=== PATIENT | male | born 1975 | race Caucasian/White ===

== ENCOUNTER 2020-08-27 15:51 | Outpatient (REF) | payer MEDICAID, SELFPAY | END 2020-08-27 15:52 | disposition home or self-care (01) | LOC: HO.SCI 15:51 | PROVIDERS: PCP Family Medicine; Visit Provider Family Medicine | DX: Z13.89 Encounter for screening for other disorder (principal) ==

== ENCOUNTER → 2020-09-21 09:21 | Outpatient (REF) | payer MEDICAID, SELFPAY ==
--- NOTE | 2020-09-21 09:15 | CA_ITS ---
Acquisition Time: 2020-09-21 10:49:54 Total Exercise Time: 00:09:37 Test Indications: Dyspnea Medications: Protocol: KORY Max HR: 179 BPM 101% of Pred: 177 BPM Max BP: 166/072 mmHG Max Work Load: 11.0 METS Exercise stress test using Kory protocol, total of 9 min 37 sec. METS 11.0, and TAPHR up to 101%. Pt tolerated well, denies any anginal sx. EKG without any arrhythmias, no ischemic changes seen during exercise or in recovery. Normotensve response to exercise. Test reviewed with Dr. Johnson. Referred By: Noé Perdomo Overread By:
== END ==
LOC: HO.CARD 09:21
PROVIDERS: PCP Internal Medicine; Visit Provider Internal Medicine
DX: R07.9 Chest pain, unspecified (principal)
CPT/HCPCS: 93016; 93017; 93018

== ENCOUNTER 2024-07-29 15:18 | Outpatient (REF) | payer MEDICAID, SELFPAY ==
[2024-07-30 07:19] LABS: HPV 16,18/45 See PAP report
[2024-07-30 08:42] LABS: Syphilis Screen Nonreactive (Nonreactive)
[2024-07-30 08:51] LABS: HIV AB/AG Nonreactive (Nonreactive); HIV Num 1 0.05 S/CO (0.00-0.99); ~Hepatitis C Antibody Nonreactive (Nonreactive)
[2024-07-30 10:49] LABS: HPV 16,18/45 See PAP report
[2024-07-30 14:06] LABS: CT PCR NOT DETECTED (Not Detect.); NG PCR NOT DETECTED (Not Detect.)
[2024-08-08 23:49] LABS: HPV MRNA E6/E7 Rectal NOT DETECTED
== END 2024-07-29 15:19 | disposition home or self-care (01) ==
LOC: HO.CHCLDS 15:18
PROVIDERS: Visit Provider Internal Medicine
DX: A63.0 Anogenital (venereal) warts (principal)
CPT/HCPCS: 36415; 86780; 86803; 87389; 87491; 87591; 87624; 87626; 88112; 88175

== ENCOUNTER 2024-11-22 08:34 | Outpatient (REF) | payer MEDICAID, SELFPAY ==
--- OUTSIDE RECORDS SUMMARY | 2024-11-22 08:58 | XMS_ITS | Encounter Summary ---
Author Organization [employer] Address [address] [facility] 7t [place] [address] Care Team Providers Care Service Attendant Name Role Phone Noé Champagne MD Primary Care Prov ider Encounter Details Date Type Department Care Team (Latest Contact Info) Description 11/21/2024 Travel Social History Tobacco Use Types Packs/Day Years Used Date Smoking Tobacco: Former Cigarettes Cigars Smokeless Tobacco: Never Alcohol Use Standard Drinks/Week Comments Yes 0 (1 standard drink = 0.6 oz pur e alcohol) Sex and Gender Information Value Date Recorded Sex Assigned at Male 05/23/2022 10:37 AM EDT Legal Sex Male 10:37 AM EDT Gender Identity Choose not to disclose 10:37 AM EDT Sexual Orientation Choose not to disclose 2021 10:37 AM EDT documented as of this encounter Plan of Treatment Upcoming Encounters Date Type Department Care Team (Late st Contact Info) Description 11/22/2024 9:00 AM EDT Office Visit [facility] AD[facility] [address] [place] [address] Kj Dawkins [address] [place] [address] Arrived documented as of this encounter Visit Diagnoses Not on filedocumented in this encounter Care Teams Service Attendant Relationship Specialty Start Date End Date Noé Champagne MD [address] [place] [address] PCP - General Internal Medicine 08/03/20 documented as of this encounter
--- OUTSIDE RECORDS SUMMARY | 2024-11-22 08:58 | XMS_ITS | Encounter Summary ---
Author Organization [facility] [employer] Address [address] [facility] 7t [place] [address] Care Team Providers Care Grain Picker Name Role Phone Noé Champagne MD Primary Care Prov ider Reason for Visit * Reason Comments Med Refill Encounter Details Date Type Department Care Team (Late Contact Info) Description 06/25/2024 Refill [facility] MEDIC[facility] [address] [place] [address] Artemio Cho MD [address] [place], [place] [phone] Primary hypertension Social History Tobacco Use Types Packs/Day Years [...] Description 11/22/2024 9:00 AM EDT Office Visit [facility] ADULT D[facility]AL [address] [place] [address] Kj Dawkins [address] [place] [address] Arrived documented as of this encounter Visit Diagnoses Diagnosis Primary hypertension Unspecified essential hypertension documented in this encounter Care Teams Grain Picker Relationship Specialty Start Date End Date Noé Champagne MD [address] [place] [address] PCP - General Internal Medicine 08/03/20 documented as of this encounter
--- OUTSIDE RECORDS SUMMARY | 2024-11-22 08:58 | XMS_ITS | Encounter Summary ---
Author Organization [employer] Address [address] [facility] 7 [place] [address] Care Team Providers Care Crossbar Frame Wirer Name Role Phone Noé Champagne MD Primary Care Prov ider Reason for Visit * Reason Comments [place] Encounter Details Date Type Department Care Team ([facility] Contact Info) Description 11/22/2024 9:00 AM EDT Office Visit [facility] ADULT DENTAL [address] [place], [place] [phone] Kj Dawkins [address] [place], [place] [phone] Arrived Social History Tobacco Use Types Packs/Day Years [...] AM EDT documented as of this encounter Last Filed Vital Signs Vital Sign Reading Time Taken Comments Blood Pressure 124/82 11/22/2024 8:55 AM EDT Pulse - - Temperature - - Respiratory Rate - - Oxygen Saturation - - Inhaled Oxygen Concentration - - Weight - - Height - - Body Mass Index - - documented in this encounter Plan of Treatment Not on file documented as of this encounter Visit Diagnoses Not on filedocumented in this encounter Care Teams Crossbar Frame Wirer Relationship Specialty Start Date End Date Noé Champagne MD [address] [place] [address] PCP - General Internal Medicine 08/03/20 documented as of this encounter
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
--- OUTSIDE RECORDS SUMMARY | 2024-11-22 08:58 | XMS_ITS | Clinical Summary ---
Author Organization [employer] Address [address] [facility] 7t [place] [address] Care Team Providers Care Service Administrator Name Role Phone Noé Champagne MD Primary Care Prov ider Allergies No known active allergies Medications acetaminophen (Tylenol) 325 MG tablet TAKE ONE TABLET BY MOUTH EVERY 8 HOURS NEEDED FOR PAIN 30 tablet 03/09/20 23 Active ibuprofen 600 MG tablet Take 1 tablet (600 mg) by mouth 3 times daily. 90 tablet 11/22/19 25 025 Active traZODone (Desyrel) 50 MG tablet Take 1 tablet (50 mg) by mouth at bedtime. 30 tablet 11/22/19 25 025 Active losartan (Cozaar) 50 MG tabletIndication s:Primary hypertension Take 1 tablet (50 mg) by mouth Once per day. 90 tablet 3 11/22/19 25 Active losartan (Cozaar) 50 MG tabletIndication s:Primary hypertension Take 1 tablet (50 mg) by mouth Once per day. 90 tablet 3 07/09/20 24 025 Discontinued(Re order (will not trigger notification to Pharmacy)) Active Problems Problem Noted Date Diagnosed Date Primary insomnia 11/21/2024 Assessment & Plan (11/21/2024 2:11 PM EDT): Will start on trazodone, risk vs benefits discussed, lifestyle modifications reinforced Primary hypertension 07/09/2024 Assessment & Plan (11/21/2024 2:10 PM EDT): Controlled, keep low sodium diet and exercise as tolerated, keep bp log, target <140/90 Assessment & Plan (07/09/2024 2:25 PM EST): Controlled, continue low sodium diet and exercise as tolerated, keep bp log, new labs ordered for guidance, target <140/90, follow up in 4 months Encounters Date Type Department Care Team Description 11/22/2024 9:00 AM EDT Office Visit [facility] ADULT DENTAL [address] [place] [address] Enedina Dawkinsricio Arrived 11/21/2024 1:45 PM EDT Telemedicine [facility] PEDS [address] [place] [address] Noé Champagne MD Primary hypertension (Primary Dx); Primary insomnia 11/21/2024 Travel 10/31/2024 8:00 AM EDT Office Visit [facility] ADULT DENTAL [address] [place] [address] MarizaEnedina burgessricio 10/17/2024 9:00 AM EDT Office Visit [facility] ADULT DENTAL [address] [place] [address] MarizaEnedina burgessricio 09/26/2024 8:00 AM EST Office Visit [facility] ADULT DENTAL [address] [place] [address] Kj Dawkins from Last 3 Months Social History Tobacco Use Types Packs/Day Years Used Date Smoking Tobacco: Former Cigarettes Cigars Smokeless Tobacco: Never Tobacco Cessation:Counseling Given: Not Answered Alcohol Use Standard Drinks/Week Comments Yes 0 (1 standard drink = 0.6 oz pur e alcohol) Sex and Gender Information Value Date Recorded Sex Assigned at Male 05/23/2022 10:37 AM EDT Legal Sex Male 10:37 AM EDT Gender Identity Choose not to disclose 10:37 AM EDT Sexual Orientation Choose not to disclose 2021 10:37 AM EDT Last Filed Vital Signs Vital Sign Reading Time Taken Comments Blood Pressure 124/82 11/22/2024 8:55 AM EDT Pulse 106 07/29/2024 2:33 PM EST Temperature 36.7 ??C (98 ??F) 07/29/2024 2:33 PM EST Respiratory Rate 20 07/29/2024 2:33 PM EST Oxygen Saturation 95% 07/29/2024 2:33 PM EST Inhaled Oxygen Concentration - - Weight 119 kg (263 lb) 07/29/2024 2:33 PM EST Height 170 cm (5' 6.93 ) 07/29/2024 2:33 PM EST Body Mass Index 41.28 07/29/2024 2:33 PM EST Plan of Treatment Upcoming Encounters Date Type Department Care Team (Late st Contact Info) Description 11/22/2024 9:00 AM EDT Office Visit [facility] ADULT DENTAL [address] [place] [address] Mariza Kj [address] [place] [address] Arrived Health Maintenance Due Date Last Done Comments CT Colonography 1977 Colonoscopy 1977 Depression Screening 1977 FIT 1977 FOBT 1977 SDOH Screening 1977 Sigmoidoscopy 1977 Alcohol/Substance Use Screening 1989 Family Planning (PISQ) 1992 DTaP/Tdap/Td Vaccines (1 - Tdap) 1996 Hepatitis B Vaccines (1 of 3 - 19+ 3-dose series) 1996 COVID-19 Vaccine (2023- season) 2024 08/09/2021, 01/14/2021, 12/24/2020 Influenza Vaccine (#1) 2024 Dental Prophylaxis 04/13/2024 10/11/2023 Dental Oral Exam 11/15/2024 05/16/2024, , 01/26/2023 Dental X-Ray: Bitewings 05/17/2025 05/16/20, 10/11/2023, 01/26/2023, Additional history exists Tobacco Screening 10/31/2025 10/31/2024 Dental X-Ray: Full Mouth 05/17/2027 05/16/2024, 12/2022 Lipid Panel 05/27/2027 05/27/2022, 040 10/2021, 08/04/2020 Colorectal Cancer Screening 08/30/2027 FIT DNA/Cologuard 08/30/2027 08/30/2024 Zoster Vaccines (1 of 2) 2027 RSV Patients and Patients Aged 60 years or older (1 - 1-dose 75+ series) 2052 HIV Screening Completed 07/29/2024, 08/04/2020 Hepatitis C Screening Completed 07/29/2024 HIB Vaccines Aged Out No longer eligi ble based on patient's age to complete this topic HPV Vaccines Aged Out No longer eligi ble based on patient's age to complete this topic Hepatitis A Vaccines Aged Out No long er eligible based on patient's age to complete this topic IPV Vaccines Aged Out No longer eligi ble based on patient's age to complete this topic Meningococcal Vaccine Aged Out No herbert pam eligible based on patient's age to complete this topic Pneumococcal Vaccine: Pediatrics (0 to 5 Years) and At-Risk Patients (6 to 49) Years) Aged Out No longer eligible based on patient's age to complete this topic RSV under 20 months Aged Out No longe r eligible based on patient's age to complete this topic Rotavirus Vaccines Aged Out No longer eligible based on patient's age to complete this topic Procedures Procedure Name Priority Date/Time Associated Diagnosis Comments NO CHARGE PROCEDURE Routine 10/31/2024 8 :00 AM EDT NO CHARGE PROCEDURE Routine 10/17/2024 9 :00 AM EDT 29 CROWN PREP Routine 09/26/2024 8:00 AM EST LAB COLOGUARD?? COLON CANCER SCREEN Routine 08/30/2024 10:11 AM EST Screening for colon cancer HEPATITIS C AB W/REFL TO HCV RNA, QN, PCR Routine 07/29/2024 3:28 PM EST Warts, genital HIV 1/2 ANTIGEN/ANTIBODY, FOURTH GENERATION W/RFL Routine 07/29/2024 3:28 PM EST Warts, genital INTRAORAL - COMPLETE SERIES OF RADIOGRAPHIC IMAGES Routine 05/16/2024 9:30 AM EDT PERIODIC ORAL EVALUATION - ESTABLISHED PATIENT Routine 05/16/2024 9:30 AM EDT PROPHYLAXIS - ADULT Routine 10/11/2023 1 1:00 AM EDT LIPID PANEL, STANDARD Routine 05/27/2022 8:40 AM EDT from Last 3 Months or Most Recently Relevant to Health Maintenance Results * Cologuard?? colon cancer screening (08/30/2024 10:11 AM EST) Cologuard Result Negative Negative 09/07/19 4:31 AM EST [employer] (IA #:[id number]) Comment: NEGATIVE TEST RESULT. A negative Cologuard result indicates a low likelihood that a colorectal cancer (CRC) or advanced adenoma (adenomatous polyps with more advanced pre-malignant features) ??is present. The chance that a person with a negative Cologuard test has a colorectal cancer is less than 1 in 1500 (negative predictive value >99.9%) or has an ??advanced adenoma is less than ??5.3% (negative predictive value 94.7%). These data are based on a prospective cross-sectional study of 10,000 individuals at average risk for colorectal cancer who were screened with both Cologuard and colonoscopy. (David Fuchs et al, N Engl J Med 2014;370(14):1286- 1297) The normal value (reference range) for this assay is negative. COLOGUARD RE-SCREENING RECOMMENDATION: Periodic colorectal cancer screening is an important part of preventive healthcare for asymptomatic individuals at average risk for colorectal cancer. ??Following a negative Cologuard result, the [place] Cancer Society and U.S. Multi-Society Task Force screening guidelines recommend a Cologuard re-screening interval of 3 years. References: [place] Cancer Society Guideline for Colorectal Cancer Screening: https://www.cancer.org/cancer/mmwim-wfllfk-nwwtdb/ctjozycgx-xiimvlthe-itotycv/ac s-rec ommendations.html.; Cornell WINTER, Destini SHEEHAN, Claudy HugginsK, Colorectal Cancer Screening: Recommendations for Physicians and Patients from the U.S. Multi-Society Task Force on Colorectal Cancer Screening , Am J Gastroenterology 2017; 112:2147-2697. TEST DESCRIPTION: Composite algorithmic analysis of stool DNA-biomarkers with hemoglobin immunoassay. ?? Quantitative values of individual biomarkers are not reportable and are not associated with individual biomarker result reference ranges. Cologuard is intended for colorectal cancer screening of adults of either sex, 45 years or older, who are at average-risk for colorectal cancer (CRC). Cologuard has been approved for use by the U.S. FDA. The performance of Cologuard was established in a cross sectional study of average-risk adults aged 50-84. Cologuard performance in patients ages 45 to 49 years was estimated by sub-group analysis of near-age groups. Colonoscopies performed for a positive result may find as the most clinically significant lesion: colorectal cancer [4.0%], advanced adenoma (including sessile serrated polyps greater than or equal to 1cm diameter) [20%] or non- advanced adenoma [31%]; or no colorectal neoplasia [45%]. These estimates are derived from a prospective cross-sectional screening study of 10,000 individuals at average risk for colorectal cancer who were screened with both Cologuard and colonoscopy. (David Villaseñor. et al, N Engl J Med 2014;370(14):6599-9378.) Cologuard may produce a false negative or false positive result (no colorectal cancer or precancerous polyp present at colonoscopy follow up). A negative Cologuard test result does not guarantee the absence of CRC or advanced adenoma (pre-cancer). The current Cologuard screening interval is every 3 years. ([place] Cancer Society and U.S. Multi-Society Task Force). Cologuard performance data in a 10,000 patient pivotal study using colonoscopy as the reference method can be accessed at the following location: www.citysocializer/results. Additional description of the Cologuard test process, warnings and precautions can be found at www.[employer].com. Stool specimen (specimen) 08/30/2024 10:11 AM EST 08/31/2024 10:47 AM EST us Noé Ambriz MD LAB MOLECULAR DIAG NOSTICS ORDERABLES Final Result [employer] (CLIA #:[id number]) [address] [place] [address], * Hepatitis C Antibody with Reflex to HCV, RNA, Quantitative, Real-Time PCR (07/29/2024 3:28 PM EST) Hepatitis C Antibody Nonreactive Nonreactive [facility] Comment:Antibodies to HCV no t detected; does not exclude early acuteHCV infection. Blood Venous blood specimen / Unknown 07/29/2024 3:28 PM EST 07/29/2024 5:35 PM EST us Artemio Cho MD LAB BLOOD ORDERABLES Final Result Performing Organization Address City/[facility]/ZIP Co de Phone Number [facility] [address] [place] [address] [phone] * HIV-1/2 Antigen and Antibodies, Fourth Generation, with Reflexes (07/29/2024 3:28 PM EST) [facility] HIV AB/AG Nonreactive Nonreactive [facility] Comment:HIV-1 p24 Ag and/or HIV-1/HIV-2 Ab not detected.A test result that is nonreactive does not exclude thepossibility of exposure to or infection with HIV-1 and/orHIV-2. Nonreactive results in this assay for individualswith prior exposure to HIV-1 and/or HIV-2 may be due toantigen and antibody levels that are below the limit ofdetection of this assay.The [employer] HIV Ag/Ab Combo assay result andsupplemental assay results should be interpreted inconjunction with the patient's clinical presentation,history and other laboratory results. If the results areinconsistent with clinical evidence, additional testing issuggested to confirm the result. Blood Venous blood specimen / Unknown 07/29/2024 3:28 PM EST 07/29/2024 5:35 PM EST us Artemio Cho MD LAB BLOOD ORDERABLES Final Result Performing Organization Address City/[facility]/ZIP Co de Phone Number [facility] [address] [place] [phone] [phone] * (ABNORMAL) LIPID PANEL, STANDARD (05/27/2022 8:40 AM EDT) [facility] Chol/HDLC Ratio 4.0 <5.0 (calc) [facility] Cholesterol, Total 183 <200 mg/dL [facility] HDL Cholesterol 46 > OR = 40 mg/dL [facility] LDL Cholesterol 119(H) mg/dL (calc) [facility] Comment: Reference range: <100 ?? Desirable range <100 mg/dL for primary prevention; ?? <70 mg/dL for patients with CHD or diabetic patients ?? with > or = 2 CHD risk factors. ?? LDL-C is now calculated using the Deisy ?? calculation, which is a validated novel method providing ?? better accuracy than the Friedewald equation in the ?? estimation of LDL-C. ?? Jhoan DAVIS et al. RODDY. 2013;310(19): 8266-7929 ?? (http://education.PassHat/faq/GNG873) Non-HDL Cholesterol 137(H) <130 mg/dL (calc) [facility] Comment: For patients with diabetes plus 1 major ASCVD risk ?? factor, treating to a non-HDL-C goal of <100 mg/dL ?? (LDL-C of <70 mg/dL) is considered a therapeutic ?? option. Triglycerides 83 <150 mg/dL [facility] 05/27/2022 8:40 AM EDT Noé Ambriz MD LAB BLOOD ORDERABL ES Final Result [facility] from Last 3 Months or Most Recently Relevant to Health Maintenance Insurance HS FULL [place] DENTAL - [facility] FULL [place]MEDICAID[place] Care Teams Service Administrator Relationship Specialty Start Date End Date Noé Champagne MD [address] [place] [address] [place] [id number] PCP - General Internal Medicine 08/03/20
--- OUTSIDE RECORDS SUMMARY | 2024-11-22 08:58 | XMS_ITS | Encounter Summary ---
Author Organization [facility] [employer] Address [address] [facility] 7t [place] [address] Care Team Providers Care Base Cloth Inspector Name Role Phone Noé Champagne MD Primary Care Prov ider Reason for Visit * Reason Comments Med Refill Encounter Details Date Type Department Care Team (Late Contact Info) Description 07/01/2024 Refill [facility] [address] [place] [address] Artemio Cho MD [address] [place], [place] [phone] Primary hypertension Social History Tobacco Use Types [...] Description 11/22/2024 9:00 AM EDT Office Visit [facility] ADULT DENTAL [address] [place] [address] Kj Dawkins [address] [place] [address] Arrived documented as of this encounter Visit Diagnoses Diagnosis Primary hypertension Unspecified essential hypertension documented in this encounter Care Teams Base Cloth Inspector Relationship Specialty Start Date End Date Noé Champagne MD [address] [place] [address] PCP - General Internal Medicine 08/03/20 documented as of this encounter
--- OUTSIDE RECORDS SUMMARY | 2024-11-22 08:58 | XMS_ITS | Clinical Summary ---
Author Organization [facility] Address [address] [place] [address] Care Team Providers Care Glaze Sprayer Name Role Phone Unavailable Primary Care Provider Unavailabl e Source Comments PLEASE NOTE, if this patient is a minor, it may be UNLAWFUL to discuss sensitive information that is contained in these records (such as FAMILY PLANNING, MENTAL HEALTH or SUBSTANCE ABUSE) with the minor patient's parent or other person without the patient's specific authorization.[facility] Social History Tobacco Use Types Packs/Day Years Used Date Smoking Tobacco: Never Assessed Social Connections Answer Date Recorded Social Connections and Isolation 0 09/21/2019 Financial Resource Strain Answer Date R ecorded Financial Resource Strain 0 2019 Stress Answer Date Recorded Stress 0 09/21/2019 Physical Activity Answer Date Recorded Physical Activity 0 09/21/2019 Food Insecurity Answer Date Recorded Food 0 09/21/2019 Transportation Needs Answer Date Record ed Transportation 0 09/21/2019 Housing Stability Answer Date Recorded Housing 0 09/21/2019 Safety and Environment Answer Date Jono rded Safety 0 09/21/2019 Utilities Answer Date Recorded Utilities 0 09/21/2019 Employment Answer Date Recorded Employment 0 09/21/2019 Sex and Gender Information Value Date Recorded Sex Assigned at Not on file Legal Sex Male 11:32 AM PST Gender Identity Not on file Sexual Orientation Not on file Plan of Treatment Not on file Insurance [place]
--- OUTSIDE RECORDS SUMMARY | 2024-11-22 08:58 | XMS_ITS | Encounter Summary ---
Author Organization [employer] Address [address] [facility] 7t [place] [address] Care Team Providers Care Briquette Molder Name Role Phone Noé Champagne MD Primary Care Prov ider Reason for Visit * Reason Onset Date Comments Med Refill 07/03/2024 Encounter Details Date Type Department Care Team (Late st Contact Info) Description 07/03/2024 Telephone [facility] MED[facility] [address] [place] [address] Noé Champagne MD [address] [place], [place] [phone] Med Refill Social History Tobacco Use Types Packs/Day Years [...] AM EDT documented as of this encounter Miscellaneous Notes * Telephone Encounter - Esthela Tello LPN - 07/03/2024 4:20 PM EST Please review request patient last seen 05/24/22. * Telephone Encounter - Ct Wilkinson - 07/03/2024 4:19 PM EST TC from pt requesting medication refill. Medications needing refill : losartan (Cozaar) 50 MG tablet To be sent to: [facility] documented in this encounter Plan of Treatment Upcoming Encounters Date Type Department Care Team ([facility] st Contact Info) Description 11/22/2024 9:00 AM EDT Office Visit [facility] ADULT DENTAL [address] [place] [address] Kj Dawkins [address] [place] [address] Arrived documented as of this encounter Visit Diagnoses Not on filedocumented in this encounter Care Teams Briquette Molder Relationship Specialty Start Date End Date Noé Champagne MD [address] [place] [address] PCP - General Internal Medicine 08/03/20 documented as of this encounter
--- OUTSIDE RECORDS SUMMARY | 2024-11-22 08:58 | XMS_ITS | Clinical Summary ---
Author Organization [facility] Address [address] [place] [address] Care Team Providers Care Vending Machine Collector Name Role Phone Noé Champagne MD Primary [...] 3 previous open ventral hernia repairs in [place]. There are large [place] cheese hernia defects along the long midline [...] 06/11/2021 Lightheadedness 06/11/2021 Insomnia 06/11/2021 Anxiety 06/11/2021 Family History Medical History Relation Name Comments Hypertension Father Stroke Father of it Hypertension Mother Stroke Mother in wheelchair, then over a decade later Intracerebral hemorrhage Neg Hx Migraines Neg Hx Seizures Neg Hx Relation Name Status Comments Father Mother Social History Tobacco Use Types Packs/Day Years [...] 11/08/2021 10:43 AM EDT Plan of Treatment Health Maintenance Due Date Last Done Comments Cologuard 1977 Colon Cancer Screening 1977 Colonoscopy 1977 FOBT / Fit Test 1977 HIV Screening 1977 Sigmoidoscopy 1977 Hepatitis B Vaccines (1 of 3 - 19+ 3-dose series) 1996 DTaP,Tdap,and Td Vaccines (1 - Tdap) 1999 COVID-19 Vaccine (4 - 2023-2 5 season) 2024 08/09/2021, 01/14/2021, 12/24/2020 Alcohol/Substance Use Screening 07/24/2024 Influenza Vaccine (Season Ended) 2025 RSV Vaccine (60+ years old a nd patients) (1 - 1-dose 75+ series) 2052 Pneumococcal Vaccine: Pediatric (0-5 Years) and At-Risk Patients (6-50 Years) Aged Out No longer eligible based on patient's age to complete this topic Insurance [facility] HSNO/FREE CARE Care Teams Vending Machine Collector Relationship Specialty Start Date End Date Noé Champagne MD [address] [place] [id number] PCP - General 03/15/21
--- OUTSIDE RECORDS SUMMARY | 2024-11-22 08:58 | XMS_ITS | Encounter Summary ---
Author Organization [employer] Address [address] [facility] 7[address] [place] [address] Care Team Providers Care Sulfur Chloride Operator Name Role Phone Noé Champagne MD Primary Care Prov ider Encounter Details Date Type Department Care Team (Late st Contact Info) Description 11/21/2024 1:45 PM EDT Telemedicine [facility] [address] [place], [place] [phone] Noé Champagne MD [address] [place], [place] [phone] Primary hypertension (Primary Dx); Primary insomnia Social History Tobacco Use Types Packs/Day Years [...] Sign Reading Time Taken Comments Blood Pressure 125/83 11/21/2024 1:55 PM EDT Pulse - - Temperature - - Respiratory Rate - - Oxygen Saturation - - Inhaled Oxygen Concentration - - Weight - - Height - - Body Mass Index - - documented in this encounter Progress Notes * Noé Ambriz MD - 11/21/2024 1:45 PM EDT Subjective Patient ID: Casey Retana is a 49 y.o. adult who presents for No chief complaint on file.. Hypertension This is a chronic problem. The problem is controlled. Pertinent negatives include no chest pain, headaches, malaise/fatigue or shortness of breath. Review of Systems Constitutional: Negative for malaise/fatigue. Respiratory: Negative for shortness of breath. Cardiovascular: Negative for chest pain. Neurological: Negative for headaches. Objective Physical Exam Neurological: General: No focal deficit present. Mental Status: Casey is oriented to person, place, and time. Psychiatric: Mood and Affect: Mood normal. Behavior: Behavior normal. Assessment/Plan Problem List Items Addressed This Visit Primary hypertension - Primary Controlled, keep low sodium diet and exercise as tolerated, keep bp log, target <140/90 Relevant Medications losartan (Cozaar) 50 MG tablet Other Relevant Orders CBC auto differential Comprehensive Metabolic Panel Lipid Panel, Standard Primary insomnia Will start on trazodone, risk vs benefits discussed, lifestyle modifications reinforced documented in this encounter Miscellaneous Notes * Assessment & Plan Note - Noé Ambriz MD - 11/21/2024 2:11 PM EDTAssociated Problem(s): Primary insomnia Will start on trazodone, risk vs benefits discussed, lifestyle modifications reinforced * Assessment & Plan Note - Noé Ambriz MD - 11/21/2024 2:10 PM EDTAssociated Problem(s): Primary hypertension Controlled, keep low sodium diet and exercise as tolerated, keep bp log, target <140/90 documented in this encounter Plan of Treatment Upcoming Encounters Date Type Department Care Team (Late st Contact Info) Description 11/22/2024 9:00 AM EDT Office Visit [facility] [address] [place] [address] Kj Dawkins [address] [place] [address] Arrived Scheduled Orders Name Type Priority Associated Diagnoses Orde r Schedule CBC auto differential Lab Routine Primary hypertension Expected: 11/21/2024 (Approximate), Expires: 11/21/2025 Comprehensive Metabolic Panel Lab Routine Primary hypertension Expected: 11/21/2024 (Approximate), Expires: 11/21/2025 Lipid Panel, Standard Lab Routine Primary hypertension Expected: 11/21/2024 (Approximate), Expires: 11/21/2025 documented as of this encounter Visit Diagnoses Diagnosis Primary hypertension- Primary Unspecified essential hypertension Primary insomnia Persistent disorder of initiating or maintaining sleep documented in this encounter Care Teams Sulfur Chloride Operator Relationship Specialty Start Date End Date Noé Champagne MD [address] [place] [id number] PCP - General Internal Medicine 08/03/20 documented as of this encounter
--- OUTSIDE RECORDS SUMMARY | 2024-11-22 08:58 | XMS_ITS | Encounter Summary ---
Author Organization [employer] [facility] Address [address] [place] [address] 7[address] [place] [address] Care Team Providers Care Regional Sales Manager Name Role Phone Noé Champagne MD Primary Care Prov ider Reason for Visit * Reason Comments Med Refill Encounter Details Date Type Department Care Team (Late st Contact Info) Description 03/09/2023 Refill [facility] ADULT DENTAL [address] [place] [address] Madison Samuel BDS Pain in other joint Social History Tobacco Use Types Packs/Day Years [...] encounter Miscellaneous Notes * Telephone Encounter - Madison Samuel BDS - 03/09/2023 2:09 PM EDT Approving, but needs appt for additional refills. documented in this encounter Plan of Treatment Upcoming Encounters Date Type Department Care Team (Late st Contact Info) Description 11/22/2024 9:00 AM EDT Office Visit [facility] ADULT DENTAL [address] [place] [address] jK Dawkins [address] [place] [address] Arrived documented as of this encounter Visit Diagnoses Diagnosis Pain in other joint documented in this encounter Care Teams Regional Sales Manager Relationship Specialty Start Date End Date Noé Champagne MD [address] [place] [phone] PCP - General Internal Medicine 08/03/20 documented as of this encounter
--- OUTSIDE RECORDS SUMMARY | 2024-11-22 08:58 | XMS_ITS | Encounter Summary ---
Author Organization [facility] [employer] Address [address] [facility] 7t [place] [address] Care Team Providers Care Plugger Name Role Phone Noé Champagne MD Primary Care Prov ider Reason for Visit * Reason Comments Med Refill Encounter Details Date Type Department Care Team (Late Contact Info) Description 07/02/2024 Refill [facility] MED[facility]INE [address] [place] [address] Artemio Cho MD [address] [place], [place] [phone] Primary hypertension Social History Tobacco Use Types [...] Description 11/22/2024 9:00 AM EDT Office Visit [facility] ADULT [facility] [address] [place] [address] Kj Dawkins [address] [place] [address] Arrived documented as of this encounter Visit Diagnoses Diagnosis Primary hypertension Unspecified essential hypertension documented in this encounter Care Teams Plugger Relationship Specialty Start Date End Date Noé Champagne MD [address] [place] [address] PCP - General Internal Medicine 08/03/20 documented as of this encounter
--- OUTSIDE RECORDS SUMMARY | 2024-11-22 08:58 | XMS_ITS | Encounter Summary ---
Author Organization [facility] [employer] Address [address] [facility] 7[address] [place] [address] Care Team Providers Care Assignment Editor Name Role Phone Noé Champagne MD Primary Care Prov ider Reason for Visit * Reason Comments Med Refill Encounter Details Date Type Department Care Team (Late Contact Info) Description 06/28/2024 Refill [facility] [address] [place] [address] Artemio Cho MD [address] [place], [place] [phone] Primary hypertension Social History Tobacco Use Types [...] Description 11/22/2024 9:00 AM EDT Office Visit [facility] ADULT [facility] [address] [place] [address] Kj Dawkins [address] [place] [address] Arrived documented as of this encounter Visit Diagnoses Diagnosis Primary hypertension Unspecified essential hypertension documented in this encounter Care Teams Assignment Editor Relationship Specialty Start Date End Date Noé Champagne MD [address] [place] [address] PCP - General Internal Medicine 08/03/20 documented as of this encounter
--- OUTSIDE RECORDS SUMMARY | 2024-11-22 08:58 | XMS_ITS | Encounter Summary ---
Author Organization [employer] Address [address] [facility] 7[address] [place] [address] Care Team Providers Care Digital Retoucher Name Role Phone Noé Champagne MD Primary Care Prov ider Reason for Visit * Reason Comments Med Refill Encounter Details Date Type Department Care Team (Late Contact Info) Description 11/23/2023 Refill [facility] ADULT DENTAL [address] [place] [address] Artemio Cho MD [address] [place] [address] Pain in other joint Social History Tobacco [...] Telephone Encounter - Madison Samuel BDS - 11/29/2023 3:00 PM EDT Approving, but needs appt for additional refills. documented in this encounter Plan of Treatment Upcoming Encounters Date Type Department Care Team (Late Contact Info) Description 11/22/2024 9:00 AM EDT Office Visit [facility] ADULT DENTAL [address] [place] [address] Kj Dawkins [address] [place] [address] Arrived documented as of this encounter Visit Diagnoses Diagnosis Pain in other joint documented in this encounter Care Teams Digital Retoucher Relationship Specialty Start Date End Date Noé Champagne MD [address] [place] [address] PCP - General Internal Medicine 08/03/20 documented as of this encounter
[2024-11-22 14:27] LABS: MANUAL DIFF FLAG NO
[2024-11-22 14:41] LABS: Basophils Absolute Auto 0.1 X10*3/uL (0.0-0.2); Basophils Percent Auto 1.4 % (0-2); Eosinophils Absolute Auto 0.4 X10*3/uL (0.0-0.4); Eosinophils Percent Auto 4.5 % (0-4); Hematocrit 45.5 % (42.0-52.0); Hemoglobin 14.4 g/dl (14.0-18.0); Imm Gran Abs Auto 0.08 X10*3/uL (0.00-0.03); Imm Gran Pct Auto 0.9 % (0.0-0.4); Lymphocytes Absolute Auto 2.3 X10*3/uL (1.2-4.9); Lymphocytes Percent Auto 26.8 % (20-40); Mean Corpuscular HGB Conc 31.6 g/dl (31.0-36.0); Mean Corpuscular Hemoglobin 28.2 pg (27.0-33.0); Mean Corpuscular Volume 89.2 fL (80.0-98.0); Mean Platelet Volume 11.7 fL (9.4-12.4); Monocytes Absolute Auto 0.7 X10*3/uL (0.1-1.2); Monocytes Percent Auto 8.1 % (2-11); Neutrophils Absolute Auto 5.1 x10*3/uL (2.0-8.3); Neutrophils Percent Auto 58.3 % (45-73); Platelet Count 215 X10*3/uL (160-400); Red Cell Distribution Width 13.8 % (11.0-16.0); White Blood Count 8.7 X10*3/uL (4.8-10.8)
[2024-11-22 14:58] LABS: Alanine Aminotransferase 48 U/L (0-40); Albumin Level 4.4 g/dL (3.5-5.0); Alkaline Phosphatase 76 U/L (39-117); Anion Gap 13 (12-20); Aspartate Amino Transferase 51 U/L (5-37); Bilirubin Total 0.4 mg/dL (0.0-1.0); Blood Urea Nitrogen 18 mg/dL (9-16); Calcium 9.5 mg/dL (8.4-10.2); Carbon Dioxide 30 mmol/L (22-29); Chloride 102 mmol/L (96-108); Cholesterol 177 mg/dL (<200); Estimated Glomerular Filt Rate > 60; Glucose Random 150 mg/dL (60-115); HDL Cholesterol 33 mg/dL (>40); LDL Cholesterol Calculated 83 mg/dL (<100); Potassium 4.5 mmol/L (3.3-5.1); Sodium 140 mmol/L (135-145); Total Protein 7.5 g/dL (6.5-8.0); Triglycerides 306 mg/dL (<150)
== END 2024-11-22 08:35 | disposition home or self-care (01) ==
LOC: HO.CHCLDS 08:34
PROVIDERS: Visit Provider Internal Medicine
DX: I10 Essential (primary) hypertension (principal)
CPT/HCPCS: 36415; 80053; 80061; 84443; 85025